=== PATIENT | female | born 1990 | race African-American/Black ===

== ENCOUNTER → 2017-05-02 | Outpatient (REF) | payer OTHER ==
[2017-05-02 22:02] LABS: INFLUENZA A AMPLIFICATION POSITIVE (NEGATIVE); INFLUENZA B AMPLIFICATION NEGATIVE (NEGATIVE)
== END ==
LOC: M LAB REF 21:09
DX: J11.1 Influenza due to unidentified influenza virus with other respiratory manifestations (principal)

== ENCOUNTER 2018-04-06 16:22 | Emergency (ER) | payer OTHER ==
[~2018-04-06] VITALS: Ht 149.9 cm; Wt 50.9 kg
[2018-04-06] MEDS ORDERED: prenatal (16:30)
[2018-04-06 16:52] LABS: HEMATOCRIT 41.8 % (36.0-47.0); MEAN CORPUSCULAR HEMOGLOBIN 29.5 pg (27.0-33.0); MEAN CORPUSCULAR HGB CONC 33.5 g/dl (32.0-36.5); MEAN CORPUSCULAR VOLUME 88.2 fl (80.0-96.0); PLATELET COUNT, AUTOMATED 311 10^3/uL (150-450); RED BLOOD COUNT 4.74 10^6/uL (4.00-5.40)
[2018-04-06 18:05] VITALS: BP 140/83
--- NOTE | 2018-04-06 18:22 | REP ---
FIRST TRIMESTER ULTRASOUND: HISTORY: Vaginal bleeding. The uterus measures 6.8 cm in transverse x 5.7 cm in AP x 10.3 cm in cephalocaudal dimensions. A single intrauterine is present. The pole measures 16 mm corresponding to a gestational age of 8 weeks 0 days. There is no heart rate or motion. Two fibroids are present. These measure 2.1 and 2.4 cm in maximum dimension. The right ovary measures 6.5 x 3.9 x 6.1 cm. An endometrioma is present in the right ovary. This measures 6.3 x 3.9 x 5.4 cm. The left ovary measures 2.9 x 2.3 x 2.5 cm. A hemorrhagic cyst is present in the left ovary. This measures 1.5 x 1.3 x 1.4 cm. There is no free fluid. IMPRESSION: 1. A single intrauterine is present with a gestational age of 8 weeks 0 days. There is no heart rate or motion consistent with demise. 2. There are two fibroids in the uterus measuring 2.1 and 2.4 cm in maximum dimension. 3. There is an endometrioma in the right ovary measuring 6.3 cm in maximum dimension. 4. There is a hemorrhagic cyst in the left ovary measuring 1.5 cm in maximum dimension. Electronically Signed by Bernardino Hawthorne MD 04/06/2018 06:37 P
== END 2018-04-06 18:08 | disposition home or self-care (01) ==
LOC: M ED 16:22
DX: O02.1 Missed abortion (principal)

== ENCOUNTER 2018-04-09 07:51 | Day surgery (SDC) | payer OTHER ==
[~2018-04-09] VITALS: Ht 149.9 cm; Wt 49.4 kg
[~2018-04-09 07:51] MED LIST: prenatal
[2018-04-09] MEDS ORDERED: ACETAMINOPHEN 650 MG SUPP PR ONE (08:00)
[2018-04-09 08:22] LABS: HEMATOCRIT 38.8 % (36.0-47.0); HEMOGLOBIN 13.1 g/dl (12.0-15.5); MEAN CORPUSCULAR HEMOGLOBIN 29.6 pg (27.0-33.0); MEAN CORPUSCULAR HGB CONC 33.8 g/dl (32.0-36.5); MEAN CORPUSCULAR VOLUME 87.6 fl (80.0-96.0); PLATELET COUNT, AUTOMATED 256 10^3/uL (150-450); RED BLOOD COUNT 4.43 10^6/uL (4.00-5.40); WHITE BLOOD COUNT 6.9 10^3/uL (4.0-10.0)
[2018-04-09 08:44] LABS: BLOOD UREA NITROGEN 8 MG/DL (7-18); CALCIUM LEVEL 8.6 MG/DL (8.5-10.1); CARBON DIOXIDE LEVEL 27 MEQ/L (21-32); CHLORIDE LEVEL 104 MEQ/L (98-107); CREATININE FOR GFR 0.73 MG/DL (0.55-1.30); GLOMERULAR FILTRATION RATE > 60.0 (>60); GLUCOSE, FASTING 97 MG/DL (70-100); POTASSIUM SERUM 3.7 MEQ/L (3.5-5.1); SODIUM LEVEL 138 MEQ/L (136-145)
[2018-04-09] MEDS ORDERED: IBUP200C25 PO (08:49)
[2018-04-09] MEDS ORDERED: ACETAMINOPHEN 650 MG SUPP As Ordered ONE ×2 (09:05→10:18)
[2018-04-09] MEDS ORDERED: MIDAZOLAM INJ 2 MG/2 ML VIAL (J2250) As Ordered ONE (10:03)
[2018-04-09] MEDS ORDERED: PROPOFOL 200 MG/20 ML VIAL As Ordered ONE (10:03)
[2018-04-09] MEDS ORDERED: fentaNYL 100 MCG/2 ML INJECTION (J3010) As Ordered ONE (10:03)
[2018-04-09] MEDS ORDERED: LIDOCAINE 2% INJ 100 MG/5 ML SDV (FOR ANES.) As Ordered ONE (10:03)
[2018-04-09] MEDS ORDERED: dexameTHASONE 4 MG/ML 1ML VIAL (J1100) As Ordered ONE (10:04)
[2018-04-09] MEDS ORDERED: ONDANSETRON 4MG/2ML VIAL (J2405) As Ordered ONE (10:10)
[2018-04-09] MEDS ORDERED: LR 1,000 ML IV ONE (10:15)
[2018-04-09] MEDS ORDERED: KETOROLAC 60 MG/2 ML VIAL (J1885) As Ordered ONE (10:16)
[2018-04-09] MEDS ORDERED: fentaNYL 100 MCG/2 ML INJECTION (J3010) IV PRN (10:45)
[2018-04-09] MEDS ORDERED: LR 1,000 ML IV SCH (10:45)
[2018-04-09] MEDS ORDERED: PERCOCET 5MG/325MG TAB PO PRN (10:45)
[2018-04-09 12:26] VITALS: BP 120/71
[2018-04-09] MEDS ORDERED: KETOROLAC 30 MG/ML VIAL (J1885) IV SCH (16:00)
--- NOTE | 2018-04-12 15:23 | RO ---
DATE OF PROCEDURE: 04/09/2018 PREOPERATIVE DIAGNOSIS: demise at 8 weeks. POSTOPERATIVE DIAGNOSIS: demise at 8 weeks. OPERATION PERFORMED: Suction curettage. SURGEON: Dr. Charles Hassan. ANESTHESIA: General ESTIMATED BLOOD LOSS: 30 mL Under adequate anesthesia, prepped, draped in the lithotomy position. Sequential on board, acetaminophen suppository 1300 mg per rectum. Time-out was performed. Weighted speculum in the vagina. A single-tooth tenaculum anterior lip of the cervix. We had drained the bladder for about 25 mL of concentrated urine. Uterus sounded to 10 cm to a Rodríguez 10, curved suction curette applied. Curettage of the cavity was smooth. Uterus placed in anatomical position well contracted. No evidence of bleeding. The patient is B+ and does not require RhoGAM.
== END 2018-04-09 12:42 | disposition home or self-care (01) ==
LOC: M SDC 07:51 → EDSTATUS 16:26
PROVIDERS: ATTEND Obstetrics & Gynecology
DX: O02.1 Missed abortion (principal); Z88.0 Allergy status to penicillin
CPT/HCPCS: 36415; 59820; 80048; 85027; 86850; 86900; 86901; 88305; J1100; J1885; J2250; J2405; J3010

== ENCOUNTER 2018-06-30 09:18 | Emergency (ER) | payer OTHER ==
[~2018-06-30] VITALS: Ht 149.9 cm; Wt 52.6 kg
[~2018-06-30 09:18] MED LIST changes: +IBUP200C25 PO
[2018-06-30] MEDS ORDERED: ONDANSETRON 4MG/2ML VIAL (J2405) IV ONE (09:45)
[2018-06-30] MEDS ORDERED: NS 1,000 ML IV ONE (09:45)
[2018-06-30 09:51] LABS: BASO % 0.8 % (0.0-1.0); EOS % 0.8 % (0.0-3.0); HEMATOCRIT 40.5 % (36.0-47.0); HEMOGLOBIN 13.1 g/dl (12.0-15.5); LYMPH # 2.6 10^3/uL (1.5-4.5); MEAN CORPUSCULAR HGB CONC 32.3 g/dl (32.0-36.5); MEAN CORPUSCULAR VOLUME 89.8 fl (80.0-96.0); MONO # 0.3 10^3/uL (0.0-0.8); MONO % 6.1 % (0.0-5.0); NEUTROPHILS # 2.2 10^3/uL (1.8-7.7); NEUTROPHILS % 42.1 % (36.0-66.0); PLATELET COUNT, AUTOMATED 316 10^3/uL (150-450); RED BLOOD COUNT 4.51 10^6/uL (4.00-5.40); WHITE BLOOD COUNT 5.3 10^3/uL (4.0-10.0)
[2018-06-30] MEDS ORDERED: KETOROLAC 30 MG/ML VIAL (J1885) IV ONE (10:00)
[2018-06-30 10:09] LABS: ALBUMIN 4.1 GM/DL (3.2-5.2); ALT/SGPT 14 U/L (12-78); AMYLASE 52 U/L (25-115); BILIRUBIN,DIRECT < 0.1 MG/DL (0.0-0.2); BILIRUBIN,TOTAL 0.3 MG/DL (0.2-1.0); BLOOD UREA NITROGEN 8 MG/DL (7-18); CALCIUM LEVEL 8.5 MG/DL (8.5-10.1); CARBON DIOXIDE LEVEL 29 MEQ/L (21-32); CHLORIDE LEVEL 105 MEQ/L (98-107); GLOMERULAR FILTRATION RATE > 60.0 (>60); GLUCOSE, FASTING 104 MG/DL (70-100); LIPASE 107 U/L (73-393); POTASSIUM SERUM 3.4 MEQ/L (3.5-5.1); SODIUM LEVEL 138 MEQ/L (136-145); TOTAL PROTEIN 7.9 GM/DL (6.4-8.2)
[2018-06-30] MEDS ORDERED: ISOVUE-370 76% 100ML VIAL (Q9967) As Ordered ONE (11:52)
[2018-06-30] MEDS ORDERED: MORPHINE 4 MG/ML 1ML VIAL/SYRINGE (J2270) IV ONE (12:30)
[2018-06-30 12:33] VITALS: BP 116/64
--- NOTE | 2018-06-30 12:52 | REP ---
CT ABDOMEN AND PELVIS WITH IV CONTRAST: TECHNIQUE: Axial contrast enhanced images from the lung bases to the pubic symphysis using 100 mL Isovue 370 intravenous contrast material with multiplanar reformations. Visualized lung bases are clear. The liver demonstrates focal fatty infiltration along the fissure for the ligamentum teres. The spleen, adrenals, pancreas, and kidneys are unremarkable. There is no hydronephrosis bilaterally. There is no abdominal aortic aneurysm. There is no evidence of significant lymphadenopathy. No free air is seen. There is no evidence of appendicitis. No bowel thickening is seen. There is a large cystic structure of the right ovary. This measures approximately 6.9 x 5.2 cm and is somewhat irregular. There is moderate adjacent free fluid in the pelvis extending up into the right abdomen. Left ovary appears unremarkable. There are two uterine fibroids identified anteriorly. These are in the range of 2 cm in diameter. Urinary bladder is unremarkable. IMPRESSION: No evidence of appendicitis. Somewhat lobulated cystic structure right ovary 6.9 x 5.2 cm. There is moderate adjacent free fluid extending into the right abdomen. No other acute abnormalities are detected. Electronically Signed by Umang Abreu MD 06/30/2018 04:07 P
[2018-06-30] MEDS ORDERED: TYLETAB14 PO (13:33)
--- NOTE | 2018-06-30 14:07 | REP ---
PELVIC ULTRASOUND: Real-time sonographic evaluation of the pelvis performed utilizing transabdominal and endovaginal technique. Bladder measures 9.8 x 7.5 x 8.2 cm. Uterus measures 9.6 x 4.6 x 6.0 cm. Endometrial thickness is 5 mm. Anterior fibroid contains calcifications and measures 1.7 x 1.6 x 1.5 cm. A left uterine body fibroid measures 1.6 x 1.3 x 1.4 cm. Normal left ovary is seen measuring 2.6 x 2.2 x 2.4 cm. The right ovary is enlarged and contains a complex cyst. The right ovary measures 8.3 x 5.0 x 6.6 cm and the complex cyst measures 6.4 x 3.2 x 4.5 cm. There is no torsion bilaterally, RI right ovary 0.68 and left ovary 0.57. Complex free fluid is seen in the right pelvis. IMPRESSION: Complex cyst right ovary maximum diameter 6.4 cm. Complex free fluid in the right pelvis. No torsion. Electronically Signed by Umang Abreu MD 06/30/2018 04:08 P
== END 2018-06-30 13:50 | disposition home or self-care (01) ==
LOC: M ED 09:18
DX: N83.201 Unspecified ovarian cyst, right side (principal); D25.9 Leiomyoma of uterus, unspecified; Z88.0 Allergy status to penicillin
CPT/HCPCS: 74177; 76830; 76856; 80048; 80076; 81001; 82150; 83690; 85025; 93976; 96374; 96375; 99284; J1885; J2270; J2405; Q9967

== ENCOUNTER 2018-08-13 07:23 | Day surgery (SDC) | payer OTHER ==
[~2018-08-13] VITALS: Ht 149.9 cm; Wt 51.4 kg
[~2018-08-13 07:23] MED LIST changes: +ACETAMINOPHEN 650 MG SUPP PR ONE; +LR 1,000 ML IV ONE; +PRENTAB55 PO; +TYLETAB14 PO; +blackseed oil PO
[2018-08-13] MEDS ORDERED: dexameTHASONE 4 MG/ML 1ML VIAL (J1100) As Ordered ONE (07:57)
[2018-08-13] MEDS ORDERED: LIDOCAINE 2% INJ 100 MG/5 ML SDV (FOR ANES.) As Ordered ONE (07:57)
[2018-08-13] MEDS ORDERED: MIDAZOLAM INJ 2 MG/2 ML VIAL (J2250) As Ordered ONE (07:57)
[2018-08-13] MEDS ORDERED: ROCURONIUM BROMIDE 50 MG/5 ML VIAL As Ordered ONE (07:57)
[2018-08-13] MEDS ORDERED: PROPOFOL 200 MG/20 ML VIAL As Ordered ONE (07:57)
[2018-08-13] MEDS ORDERED: ONDANSETRON 4MG/2ML VIAL (J2405) As Ordered ONE (07:57)
[2018-08-13] MEDS ORDERED: fentaNYL 100 MCG/2 ML INJECTION (J3010) As Ordered ONE ×2 (07:57→09:34)
[2018-08-13 07:58] LABS: HEMATOCRIT 41.5 % (36.0-47.0); HEMOGLOBIN 13.3 g/dl (12.0-15.5); MEAN CORPUSCULAR HEMOGLOBIN 28.1 pg (27.0-33.0); MEAN CORPUSCULAR VOLUME 87.7 fl (80.0-96.0); PLATELET COUNT, AUTOMATED 308 10^3/uL (150-450); RED BLOOD COUNT 4.73 10^6/uL (4.00-5.40); WHITE BLOOD COUNT 3.7 10^3/uL (4.0-10.0)
[2018-08-13] MEDS ORDERED: ZOFR4TAB16 PO (07:58)
[2018-08-13 08:20] LABS: BLOOD UREA NITROGEN 10 MG/DL (7-18); CALCIUM LEVEL 9.1 MG/DL (8.5-10.1); CARBON DIOXIDE LEVEL 27 MEQ/L (21-32); CHLORIDE LEVEL 106 MEQ/L (98-107); CREATININE FOR GFR 0.82 MG/DL (0.55-1.30); GLOMERULAR FILTRATION RATE > 60.0 (>60); GLUCOSE, FASTING 82 MG/DL (70-100); HCG, SERUM QUANTITATIVE < 1.0 MIU/ML; POTASSIUM SERUM 3.8 MEQ/L (3.5-5.1); SODIUM LEVEL 140 MEQ/L (136-145)
[2018-08-13] MEDS ORDERED: BUPIVACAINE HCL 0.5% 10 ML VIAL As Ordered ONE (09:03)
[2018-08-13] MEDS ORDERED: ACETAMINOPHEN 650 MG SUPP As Ordered ONE (09:04)
[2018-08-13] MEDS ORDERED: METHYLENE BLUE 0.5% (5MG/ML) 10 ML AMP (PROVAYBLUE)(Q9968 PER 1MG) As Ordered ONE (09:04)
[2018-08-13] MEDS ORDERED: GLYCOPYRROLATE INJ 0.2 MG/ML 2 ML VIAL As Ordered ONE (10:45)
[2018-08-13] MEDS ORDERED: NEOSTIGMINE 10 MG/10 ML VIAL (J2710) As Ordered ONE (10:45)
[2018-08-13] MEDS ORDERED: ONDANSETRON 4MG/2ML VIAL (J2405) IV PRN (11:30)
[2018-08-13] MEDS: fentaNYL 100 MCG/2 ML INJECTION (J3010) IV PRN ×2 (11:30→11:44)
[2018-08-13] MEDS ORDERED: LR 1,000 ML IV SCH (11:30)
[2018-08-13] MEDS ORDERED: oxyCODONE 5MG TAB As Ordered ONE (11:44)
[2018-08-13] MEDS: oxyCODONE 5MG TAB PO PRN ×2 (11:44→12:53)
[2018-08-13] MEDS ORDERED: KETOROLAC 30 MG/ML VIAL (J1885) IM SCH (12:00)
[2018-08-13 14:00] VITALS: BP 111/67
--- NOTE | 2018-08-17 19:37 | RO ---
DATE OF PROCEDURE: 08/13/2018 PREOPERATIVE DIAGNOSIS: Bilateral adnexal masses. POSTOPERATIVE DIAGNOSIS: Stage 4 endometriosis. Bilateral endometroma right is greater than left. Fixed right adnexa the cul-de-sac. Inflammatory process of right round ligaments, adhesions right side from midclavicular line down to the symphysis pubis normal appendix, normal intrauterine architecture. posterior wall myoma. OPERATION PROPOSED: Operative laparoscopy. The excision of bilateral adnexal masses hysteroscopy D and C. OPERATION PERFORMED: Operative laparoscopy, excision of right endometrioma. Removal of adhesions, hysteroscopy D and C. ANESTHESIA: General plus local anesthetic for intraperitoneal procedures. ESTIMATED BLOOD LOSS: 30 mL SURGEON: Dr. Hassan. GARMENT PRESSER: Raisa for extraction, retraction and visualization. After adequate time-out, prepped and draped in the lithotomy position, Bergeron catheter bladder draining clear urine. Acetaminophen suppository 1300 mg per rectum, sequentials in place. No prophylactic antibiotics. A single-tooth tenaculum placed on the anterior lip of cervix which was high anterior deviated off to the right uterine elevator was placed endocervical canal. Reprepping and draping small subumbilical incision was made. Veress needle was applied 4.6 liters of CO2 to a flow rate of 4 to a maximum of 15, direct entry into the abdomen and there was no evidence of perforation, hemorrhage or bleeding. Right upper quadrant was normal left upper quadrant was normal. There was initially some adhesions from the midclavicular line. The lateral wall of the pelvis right down to the urachus on the right side probably related to the endometriosis inflammatory process because we did see inflammatory process of endometriosis along the right broad ligament, round ligament staining with endometriosis. The anterior peritoneum also the right ovary was fixed in the right sidewall and pelvis with large endometrioma The left ovary which was smaller was in the cul-de-sac posteriorly had some endometriosis on the but did not visualize as an endometrioma. The right tube was swollen from the inflammatory effect. The left tube appeared to be normal anterior aspect of the bladder was clear and left upper quadrant was clear. We put a 3 mm port on the right side of 5 mm port on the left side then with a uterine elevator endocervical canal we removed the uterus off the right with cautery we developed a flap in the right ovarian cyst placed a suction curette into the ovarian cyst and thick chocolate material was removed from now right side probably 35-50 mL. We then irrigated it out in order to evaluate the capsule we then were able to extract the capsule by blunt dissection and removed that and sent off to pathology under separate cover. The ovarian tissue, there was some significant amount left there was no evidence of active bleeding there. We did put an Endoloop around that ovary that was opened and just snugged it up so there would be no excess bleeding. We irrigated again and saw there was no evidence of bleeding on the right side. We were able to identify the right side stained with endometriosis, but was not impinged upon by our operative procedure. On the left side we went ahead and evaluated that left ovary. Did not appeared to be large endometrioma just fixed to the cul-de-sac because of the endometriosis in the secondary inflammatory effect. We did separate that off from the posterior cul-de-sac. Once that was done we put some Braden down on the right side in order to secure the possible bleeding that could be entertained. The appendix appeared to be swollen but not as but not infectious and there was staining on it but did not significantly impress us, there was endometriosis. We had an intraoperative consult with Dr. Lowery to evaluate whether the appendix should be removed or not and he recommended that we leave the appendix alone because we do have a diagnosis of endometriosis but does not appear to be impinging on the appendix and so we documented that with pictures and showed the evidence of the appendix and relatively normal proximity in appearance to its normal location. With instrument and pad count correct we deflated to 4 mm pressure. Removed the two 5 mm ports and removed the mainstem port and put a deep stitch in the umbilical area superficial stitches Marcaine 0.25%, the skin and skin tapes. We then went below removed the uterine elevator dilated up the cervix in order to accommodate the curette. This lady's last period was July 22, 2018 and we did curette some tissue out. We then hysteroscope the patient 150 mL of saline in 150 mL out. Both ostia appeared to be normal. The uterine architecture appeared to be normal. There is no intrauterine lesions or compression. We then removed all instruments, removed the Bergeron catheter. Our plan for this lady is probably going to be Depo Lupron for 3-4 months, possibly an oral contraceptive on a continuous basis or progesterone only pill depending on this lady's considerations for wanting more children. The only question we had was whether not the tubes were patent and not however with extreme swelling that there was present we were unable to determine if there was patency to the tubes. The patient was sent to recovery in good condition.
== END 2018-08-13 14:05 | disposition home or self-care (01) ==
LOC: M SDC 07:23
PROVIDERS: ATTEND Obstetrics & Gynecology
DX: N80.3 Endometriosis of pelvic peritoneum (principal); N73.6 Female pelvic peritoneal adhesions (postinfective); Z88.0 Allergy status to penicillin; Z79.899 Other long term (current) drug therapy
CPT/HCPCS: 36415; 58558; 58662; 80048; 84702; 85027; 88305; J1100; J1885; J2250; J2405; J2710; J3010